=== PATIENT | female | born 1995 | race Caucasian/White ===

== ENCOUNTER 2022-12-28 16:31 | Emergency (ER) | payer OTHER, SELFPAY ==
[2022-12-28 17:28] LABS: Absolute Lymphocytes (CBC) 2.3 K/uL (0.7-4.9); Hematocrit 37.4 % (36.0-45.0); Lymphocytes % 23.2 % (15.3-44.8); MCV 88.5 fL (80-100); MPV 9.2 fL (7.6-11.3); RBC Red Blood Cell Count 4.23 M/uL (3.86-4.86)
[2022-12-28 17:45] LABS: Calcium Oxalate Crystals- Ur Few /HPF (None Seen); Urine Bacteria None Seen /HPF (<20); Urine Mucus 1+ /HPF (None Seen); Urine RBC >50 /HPF (None Seen)
[2022-12-28 18:02] LABS: Potassium 3.1 mmol/L (3.5-5.1)
--- NOTE | 2022-12-28 19:18 | RAD REPORT ---
EXAM DESCRIPTION: US - Matter hSayyal Tm 1 - 12/28/2022 6:23 pm CLINICAL HISTORY: VAGINAL BLEEDING Early . COMPARISON: No comparisons FINDINGS: A single live intrauterine gestation is identified in cephalic position. Amniotic fluid gr ossly normal. Heart rate is normal 166 beats per minute. Estimated gestational age 14 weeks 4 days. P lacenta appears forming anteriorly. Neither ovary well visualized. No gross adnexal abnormality bilaterally. IMPRESSION: Single live early intrauterine gestation. No acute finding.
[2022-12-28] MEDS ORDERED: NA CHLORIDE 0.9% 100 ML ONE (19:38)
[2022-12-28] MEDS ORDERED: CEFAZOLIN SODIUM 1 GM/VIAL ONE (19:38)
[2022-12-28 19:56] VITALS: BP 147/75; TEMP 97.5; O2SAT 100
[2023-01-01 09:56] LABS: Urine Blood 3+ (Negative); Urine Glucose Trace (Negative); Urine Protein 2+ (Negative); Urine Specific Gravity >=1.030 (1.005-1.030)
--- NOTE | 2023-01-12 15:19 | EDPHYS ---
Physician Documentation [facility] Name: Ramonita Lim Age: 27 yrs Sex: Female : 1995 Arrival Date: 12/28/2022 Time: 16:34 Bed 11 Private MD: ED Physician Nehemias Crowley HPI: 12/28 16:49 This 27 yrs old Female presents to ER via Ambulatory with complaints of 15wks pm1 ,vaginal bleeding, Abdominal Cramping. 16:49 The patient presents with vaginal bleeding that is light, with no clots. Onset: The pm1 symptoms/episode began/occurred today. Modifying factors: The symptoms are alleviated by nothing, the symptoms are aggravated by nothing. Associated signs and symptoms: Pertinent positives: cramping, Pertinent negatives: dysuria, fever, nausea, vomiting. Severity of symptoms: in the emergency department the symptoms are actually worse. The patient is sexually active. The patient has experienced similar episodes in the past, Patient reports history of first trimester bleeding. The patient has not recently seen a physician. . 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 - Social history:: Smoking status: Patient denies any tobacco usage or history of. ROS: 16:49 Positive for vaginal bleeding, Negative for urinary symptoms. pm1 16:49 Constitutional: Negative for fever, chills, and weight loss, Cardiovascular: Negative for chest pain, palpitations, and edema, Respiratory: Negative for shortness of breath, cough, wheezing, and pleuritic chest pain. 16:49 Back: Negative for injury and pain, MS/Extremity: Negative for injury and deformity, Skin: Negative for injury, rash, and discoloration, Neuro: Negative for headache, weakness, numbness, tingling, and seizure. 16:49 Abdomen/GI: Positive for abdominal cramps, of the suprapubic area. 16:49 All other systems are negative. Exam: 16:49 Constitutional: This is a well developed, well nourished patient who is awake, alert, pm1 and in no acute distress. Head/Face: Normocephalic, atraumatic. 16:49 Back: No spinal tenderness. No costovertebral tenderness. Full range of motion. Skin: Warm, dry with normal turgor. Normal color with no rashes, no lesions, and no evidence of cellulitis. MS/ Extremity: Pulses equal, no cyanosis. Neurovascular intact. Full, normal range of motion. 16:49 Eyes: Exam is negative for acute changes. 16:49 ENT: Exam is negative for acute changes, Mouth: no acute changes, Lips: normal, moist, Oral mucosa: normal, pink and intact, moist. 16:49 Cardiovascular: Exam negative for acute changes. 16:49 Respiratory: Exam negative for acute changes, respiratory distress, shortness of breath. 16:49 Abdomen/GI: Inspection: abdomen appears normal, Palpation: abdomen is soft and non-tender, in all quadrants. 16:49 Neuro: Exam negative for acute changes, Orientation: is normal, Motor: is normal, moves all fours. Vital Signs: 16:39 BP 147 / 75; Pulse 79; Resp 16; Temp 97.5; Pulse Ox 100% on R/A; Weight 68.04 kg; hb Height 5 ft. 4 in. ; Pain 6/10; 16:39 Body Mass Index 25.75 (68.04 kg, 162.56 cm) hb 16:39 Pain Scale: Adult hb MDM: 16:43 Patient medically screened. pm1 17:17 Data reviewed: vital signs. pm1 17:17 Differential diagnosis: ectopic , nonspecific abdominal pain, placenta previa. pm1 19:05 Counseling: I had a detailed discussion with the patient and/or guardian regarding: the pm1 historical points, exam findings, and any diagnostic results supporting the discharge/admit diagnosis, lab results, radiology results, the need for outpatient follow up, an OB/Gyne specialist, pending official U/S read. 19:21 Counseling: I had a detailed discussion with the patient and/or guardian regarding: pm1 radiology results, the need for outpatient follow up, an OB/Gyne specialist, to return to the emergency department if symptoms worsen or persist or if there are any questions or concerns that arise at home. 12/28 16:44 Order name: Abo/rh Typing pm1 12/28 16:44 Order name: Basic Metabolic Panel; Complete Time: 18:03 pm1 12/28 16:44 Order name: CBC with Diff; Complete Time: 17:39 pm1 12/28 16:44 Order name: Quantitative Hcg; Complete Time: 18:03 pm1 12/28 16:44 Order name: Urine Microscopic Only; Complete Time: 17:47 pm1 12/28 18:24 Order name: Matter Eval Tm 1; Complete Time: 19:19 EDMS 12/28 16:44 Order name: IV Saline Lock; Complete Time: 17:20 pm1 12/28 16:44 Order name: Labs collected and sent; Complete Time: 17:20 pm1 12/28 16:44 Order name: NPO; Complete Time: 17:05 pm1 12/28 16:44 Order name: Urine Dipstick-Ancillary (obtain specimen); Complete Time: 17:20 pm1 12/28 16:44 Order name: Urine Test (obtain specimen); Complete Time: 17:20 pm1 Administered Medications: No medications were administered Disposition: 12/29 07:02 Co-signature as Attending Physician, Nehemias Crowley MD I reviewed the patient's care rn provided by the Advanced Practice Provider and agree with the diagnosis and treatment plan. Disposition Summary: 12/28/22 19:22 Discharge Ordered Location: Home pm1 Problem: new pm1 Symptoms: have improved pm1 Condition: Stable pm1 Diagnosis - Threatened pm1 Followup: pm1 - With: Emergency Department - When: - Reason: Worsening of condition Followup: pm1 - With: Private Physician - When: 2 - 3 days - Reason: Recheck today's complaints, Continuance of care, Re-evaluation by your physician Discharge Instructions: - Discharge Summary Sheet pm1 - Threatened Miscarriage pm1 - Vaginal Bleeding During , Second Trimester pm1 - Activity Restriction During pm1 - Vaginal Bleeding During , Second Trimester, [id number] pm1 Forms: - Medication Reconciliation Form pm1 - Thank You Letter pm1 - Antibiotic Education pm1 - Prescription Opioid Use pm1 Signatures: Dispatcher [employer] EDNehemias Hare MD MD rn Marinas, Patrick, SEAT JOINER CHAINSTITCH SEAT JOINER CHAINSTITCH pm1 Shireen Bui RN RN Corrections: (The following items were deleted from the chart) 12/28 18:24 16:58 Transvaginal Ob+US.RAD.BRZ ordered. EDMS EDMS
--- NOTE | 2023-01-12 15:19 | ER ---
Nurse's Notes [facility] Name: Ramonita Lim Age: 27 yrs Sex: Female : 1995 Arrival Date: 12/28/2022 Time: 16:34 Bed 11 Private MD: Diagnosis: Threatened Presentation: 12/28 16:39 Chief complaint: Lower abdominal cramping x 3 days, scant vaginal bleeding this hb afternoon. Pt is 15 weeks 2 days , LIAN 06/19, . Coronavirus screen: At this time, the client does not indicate any symptoms associated with coronavirus-19. Ebola Screen: No symptoms or risks identified at this time. Initial Sepsis Screen: Does the patient meet any 2 criteria? No. Patient's initial sepsis screen is negative. Does the patient have a suspected source of infection? No. Patient's initial sepsis screen is negative. Risk Assessment: Do you want to hurt yourself or someone else? Patient reports no desire to harm self or others. Onset of symptoms was December 26, 2022. 16:39 Method Of Arrival: Ambulatory hb 16:39 Acuity: CLAY 3 hb COUNTY MANAGER: 16:49 1, Full Term 0, Living 0 pm1 Historical: - Allergies: 16:41 Latex, Natural Rubber; hb - Home Meds: 16:41 None [Active]; hb - PMHx: 16:41 None; hb - PSHx: 16:41 None; hb - Immunization history:: Adult Immunizations up to date. - Social history:: Smoking status: Patient denies any tobacco usage or history of. Vital Signs: 16:39 BP 147 / 75; Pulse 79; Resp 16; Temp 97.5; Pulse Ox 100% on R/A; Weight 68.04 kg; hb Height 5 ft. 4 in. ; Pain 6/10; 16:39 Body Mass Index 25.75 (68.04 kg, 162.56 cm) hb 16:39 Pain Scale: Adult hb ED Course: 16:34 Patient arrived in ED. mr 16:41 Triage completed. hb 16:41 Arm band placed on. hb 16:43 Atul Dickson NP is PHCP. pm1 16:43 Nehemias Crowley MD is Attending Physician. pm1 17:05 Messina, Beatriz, RN is Primary Nurse. eh3 17:20 Inserted saline lock: 20 gauge in left antecubital area, using aseptic technique. Blood eh3 collected. 18:24 Matter Eval Tm 1 In Process Unspecified. EDMS Administered Medications: No medications were administered Outcome: 19:22 Discharge ordered by . pm1 19:32 Patient left the ED. eh3 Signatures: Dispatcher [employer] EDMS ArnavCindy RandolphAtul, TOPOLOGY PROFESSOR TOPOLOGY PROFESSOR pm1 Shireen Bui, MAKAYLA RN Beatriz Messina RN RN eh3
== END 2022-12-28 19:32 | disposition home or self-care (01) ==
LOC: ER 16:31
DX: O20.0 Threatened abortion (principal); Z91.040 Latex allergy status; Z91.048 Other nonmedicinal substance allergy status
CPT/HCPCS: 85025; 80048; 36415; 86900; 86850; 85461; 86901 ×2; 84702; 76801; 99283; J0690; 81003; 81015

== ENCOUNTER 2022-12-29 16:55 | Emergency (ER) | payer OTHER, SELFPAY ==
[2022-12-29] MEDS ORDERED: PROMETHAZINE INJ 25 MG/ML AMP ONE (18:43)
[2022-12-29] MEDS ORDERED: FENTANYL CITR 100 MCG/2 ML ONE ×2 (18:44→21:11)
[2022-12-29] MEDS ORDERED: NA CHLORIDE 0.9% 250 ML ONE (18:44)
[2022-12-29] MEDS ORDERED: NA CHLORIDE 0.9% 1,000 ML ONE (18:44)
--- NOTE | 2022-12-29 18:59 | RAD REPORT ---
EXAM DESCRIPTION: US - OB Limited - 12/29/2022 6:51 pm CLINICAL HISTORY: ABD CRAMPING, COMPARISON: Matter Eval Tm 1 dated 12/28/2022 TECHNIQUE: Sonographic grayscale and color flow images of a first-trimester were obtained through approach. FINDINGS: A single live intrauterine is identified. Grayscale and M-mode for evaluation of the cardiac activity was performed, with a heart r ate measuring 156 beats per minute [place]-rump length measurement and the pain was performed on obstetrical ultrasound of the previous da y. No abnormal collections of findings to suggest subchorionic hemorrhage. Maternal ovaries were not visualized. No free fluid. IMPRESSION: 1. Single live intrauterine . 2. heart rate: 156 beats per minute. 3. dating was performed on ultrasound of the previous day.
[2022-12-29 19:10] LABS: Absolute Lymphocytes (CBC) 1.6 K/uL (0.7-4.9); Lymphocytes % 9.4 % (15.3-44.8); MPV 9.3 fL (7.6-11.3); RBC Red Blood Cell Count 4.32 M/uL (3.86-4.86)
[2022-12-29 19:28] LABS: Potassium 3.4 mmol/L (3.5-5.1)
[2022-12-29 19:58] LABS: Urine Bacteria <20 /HPF (<20); Urine Crystals Unidentified Few /HPF (None Seen); Urine Mucus 2+ /HPF (None Seen); Urine RBC 21-50 /HPF (None Seen)
--- NOTE | 2022-12-29 20:08 | RAD REPORT ---
EXAM DESCRIPTION: US - Renal Ultrasound-Complete - 12/29/2022 6:51 pm CLINICAL HISTORY: LOWER BACK PAIN COMPARISON: No comparisons TECHNIQUE: Sonographic grayscale and color flow images of both kidneys were obtained. FINDINGS: Evaluation is technically limited due to suboptimal patient positioning due to pain. Both kidneys are normal in size, shape and echotexture. The right kidney measures 8.6 centimeter in length. No hydronephrosis, focal mass or perinephric flui d. The left kidney measures 10 centimeter in length. No hydronephrosis, focal mass or perinephric fluid. IMPRESSION: Unremarkable renal sonogram.
[2022-12-29] MEDS ORDERED: ACETAMINOPHEN 325 MG TABLET ONE (21:02)
[2022-12-29] MEDS ORDERED: MORPHINE 2 MG/ML SYR ONE (21:02)
[2022-12-29] MEDS ORDERED: POTASSIUM 25 MEQ EFFERV TAB ONE (21:02)
[2022-12-29] MEDS ORDERED: METOCLOPRAMIDE 10 MG/2mL INJ ONE (21:10)
[2022-12-30 01:33] VITALS: BP 112/58; TEMP 97.5; O2SAT 100
--- NOTE | 2023-01-12 16:05 | EDPHYS ---
Physician Documentation [facility] Name: Ramonita Lim Age: 27 yrs Sex: Female : 1995 Arrival Date: 12/29/2022 Time: 16:59 Bed 10 Private MD: ED Physician Nehemias Crowley HPI: 12/29 18:35 This 27 yrs old Female presents to ER via Ambulatory with complaints of 15 wks snw , Vaginal Bleeding, Back Pain. 18:28 The patient presents to the emergency department with. The estimated gestational age is snw 15 weeks. 18:35 course: Ultrasound: the patient had an ultrasound, on December 28, 2022. snw Previous pregnancies: the patient has never been . Associated signs and symptoms: Pertinent positives: hx of kidney stones. The patient has not experienced similar symptoms in the past. The patient has been recently seen by a physician: The patient has been recently seen at the [facility], yesterday. 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 - Social history:: Smoking status: Patient denies any tobacco usage or history of. ROS: 18:38 Constitutional: Negative for fever, chills, and weight loss, Eyes: Negative for injury, snw pain, redness, and discharge, ENT: Negative for injury, pain, and discharge, Neck: Negative for injury, pain, and swelling. 18:38 Cardiovascular: Negative for chest pain, palpitations, and edema, Respiratory: Negative for shortness of breath, cough, wheezing, and pleuritic chest pain, Abdomen/GI: Negative for abdominal pain, nausea, vomiting, diarrhea, and constipation. 18:38 MS/Extremity: Negative for injury and deformity, Skin: Negative for injury, rash, and discoloration, Neuro: Negative for headache, weakness, numbness, tingling, and seizure, Psych: Negative for depression, anxiety, suicide ideation, homicidal ideation, and hallucinations. 18:38 Back: Positive for flank pain, on the left. 18:38 : Positive for "peeing blood". Exam: 18:39 Head/Face: Normocephalic, atraumatic. Eyes: Pupils equal round and reactive to light, snw extra-ocular motions intact. Lids and lashes normal. Conjunctiva and sclera are non-icteric and not injected. Cornea within normal limits. Periorbital areas with no swelling, redness, or edema. ENT: Nares patent. No nasal discharge, no septal abnormalities noted. Tympanic membranes are normal and external auditory canals are clear. Oropharynx with no redness, swelling, or masses, exudates, or evidence of obstruction, uvula midline. Mucous membranes moist. Neck: Trachea midline, no thyromegaly or masses palpated, and no cervical lymphadenopathy. Supple, full range of motion without nuchal rigidity, or vertebral point tenderness. No Meningismus. Chest/axilla: Normal chest wall appearance and motion. Nontender with no deformity. No lesions are appreciated. Cardiovascular: Regular rate and rhythm with a normal S1 and S2. No gallops, murmurs, or rubs. Normal PMI, no JVD. No pulse deficits. 18:39 Abdomen/GI: Soft, non-tender, with normal bowel sounds. No distension or tympany. No guarding or rebound. No evidence of tenderness throughout. 18:39 Neuro: Awake and alert, GCS 15, oriented to person, place, time, and situation. Cranial nerves II-XII grossly intact. Motor strength 5/5 in all extremities. Sensory grossly intact. Cerebellar exam normal. Normal gait. 18:39 Constitutional: The patient appears alert, anxious, frail, in obvious pain, restless, uncomfortable. 18:39 Respiratory: the patient does not display signs of respiratory distress, Respirations: normal, Breath sounds: are clear throughout. 18:39 Back: pain, that is moderate, CVA tenderness, that is mild. 18:39 Skin: Appearance: Color: pale, Turgor: is good. 18:39 Psych: Affect is pt in pain, fearful. Vital Signs: 17:44 BP 112 / 58; Pulse 94; Resp 18; Temp 97.5; Pulse Ox 100% on R/A; Weight 65.77 kg; ph Height 5 ft. 4 in. ; 17:44 Body Mass Index 24.89 (65.77 kg, 162.56 cm) ph MDM: 18:04 Data reviewed: vital signs, nurses notes, ED record from yesterday.. ED course: snw evaluated visit from yesterday. Noted pt is A negative. Rhogam order placed.. 18:27 Patient medically screened. cp 18:37 Differential diagnosis: kidney stones, placental developmental problem. snw 18:41 Transition of care: After a detail discussion of the patient's case, care is snw transferred to Aleks EASTON. 12/29 18:34 Order name: Urine Culture [facility] 12/29 18:34 Order name: Urine Microscopic Only; Complete Time: 20:44 [facility] 12/29 20:45 Interpretation: Normal except: UWBC 20-50; URBC 21-50; SQEPI >50. 12/29 18:34 Order name: CBC with Diff; Complete Time: 20:44 [facility] 12/29 20:45 Interpretation: Normal except: WBC 16.60; VÍCTOR% 86.7; LYM% 9.4; NEUT A 14.3. 12/29 18:34 Order name: Chem 7; Complete Time: 20:44 [facility] 12/29 20:45 Interpretation: Normal except: K 3.4; CL 108; CO2 18; ANION GAP 15.4; GLUC 133. 12/29 19:29 Order name: Rh Typing [facility] 12/29 19:30 Order name: Rhogam [facility] 12/29 17:06 Order name: US OB Limited; Complete Time: 20:44 [facility] 12/29 18:34 Order name: US Rp Exam Complete; Complete Time: 20:44 [facility] 12/29 18:34 Order name: Urine Dipstick-Ancillary (obtain specimen); Complete Time: 19:32 [facility] 12/29 20:47 Order name: PO challenge; Complete Time: 21:28 cp Administered Medications: 19:07 Drug: fentaNYL (PF) IVP 25 mcg Route: IVP; Site: right forearm; mb9 19:24 Follow up: Response: No adverse reaction mb9 19:07 Drug: NS 0.9% IV 1000 ml Route: IV; Rate: 1 bolus; Site: right forearm; mb9 21:30 Follow up: Response: No adverse reaction; IV Status: Completed infusion; IV Intake: kr3 1000ml 19:07 Drug: Promethazine IVP 25 mg Route: IVP; Site: Other; mb9 19:22 Follow up: Response: No adverse reaction mb9 19:07 Drug: NS 0.9% IV 250 ml Route: IV; Rate: bolus; Site: right forearm; mb9 21:30 Follow up: Response: No adverse reaction; IV Status: Completed infusion; IV Intake: kr3 1000ml 19:54 Drug: Rho D Immune Globulin IM 300 mcg Route: IM; Site: left deltoid; mb9 21:30 Follow up: Response: No adverse reaction kr3 21:02 Drug: Acetaminophen PO 650 mg Route: PO; kr3 21:29 Follow up: Response: No adverse reaction kr3 21:03 Not Given (Physician Discretion): morphine IVP or IV 2 mg IVP once over 4 mins cp 21:18 Drug: Potassium PO Effervescent Tablet 50 mEq Route: PO; kr3 21:18 Drug: metoCLOPramide IVP 10 mg Route: IVP; Site: right forearm; kr3 21:29 Follow up: Response: No adverse reaction kr3 21:19 Drug: fentaNYL (PF) IVP 25 mcg Route: IVP; Site: right forearm; kr3 21:29 Follow up: Response: No adverse reaction kr3 Disposition Summary: 12/29/22 21:07 Discharge Ordered Location: Home cp Problem: new cp Symptoms: have improved cp Condition: Stable cp Diagnosis - Threatened cp - Low back pain cp Followup: cp - With: Private Physician - When: 2 - 3 days - Reason: Recheck today's complaints Discharge Instructions: - Activity Restriction During cp - Vaginal Bleeding During , Second Trimester cp - Threatened Miscarriage cp - Care cp - Acute Back Pain, Adult cp - Discharge Summary Sheet cp Forms: - Prescription Opioid Use cp - Antibiotic Education cp - Thank You Letter cp - Medication Reconciliation Form cp Prescriptions: - promethazine 25 mg Oral Tablet - take 1 tablet by ORAL route every 6 hours As needed; 20 tablet; Refills: 0, cp Product Selection Permitted - Macrobid 100 mg Oral Capsule - take 1 capsule by ORAL route every 12 hours for 7 days; 14 capsule; Refills: 0, cp Product Selection Permitted Addendum: 01/01/2023 08:42 Co-signature as Attending Physician, Nehemias Crowley MD I reviewed the patient's care r n provided by the Advanced Practice Provider and agree with the diagnosis and treatment plan. Signatures: Dispatcher [employer] Mariajose Laughlin, HOT PACKER-C HOT PACKER-Csnw Nehemias Crowley MD MD rn Hall, Patricia, RN RN Aleks Chandler PA PA cp Reid, Kelley, RN RN kr3 Cindy Burton, RN RN mb9
--- NOTE | 2023-01-12 16:05 | ER ---
Nurse's Notes [facility] Name: Ramonita Lim Age: 27 yrs Sex: Female : 1995 Arrival Date: 12/29/2022 Time: 16:59 Bed 10 Private MD: Diagnosis: Threatened ;Low back pain Presentation: 12/29 17:44 Chief complaint: Patient states: L side pain that started today, also reports N/V, ph actively vomiting in triage, hx of kidney stones, also reports blood in urine, pt is 15 weeks . Coronavirus screen: Vaccine status: Patient reports being unvaccinated. Ebola Screen: No symptoms or risks identified at this time. Initial Sepsis Screen: Does the patient meet any 2 criteria? No. Patient's initial sepsis screen is negative. Does the patient have a suspected source of infection? No. Patient's initial sepsis screen is negative. Risk Assessment: Do you want to hurt yourself or someone else? Patient reports no desire to harm self or others. Onset of symptoms was December 29, 2022. 17:44 Method Of Arrival: Ambulatory ph 17:44 Acuity: CLAY 3 ph Triage Assessment: 17:47 General: Appears in no apparent distress. uncomfortable, Behavior is calm, cooperative. ph Pain: Complains of pain in posterior aspect of left lateral abdomen and anterior aspect of left lateral abdomen. 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 - Social history:: Smoking status: Patient denies any tobacco usage or history of. Screenin:29 [facility] ED Fall Risk Assessment (Adult) History of falling in the last 3 months, mb9 including since admission No falls in past 3 months (0 pts) Confusion or Disorientation No (0 pts) Intoxicated or Sedated No (0 pts) Impaired Gait No (0 pts) Mobility Assist Device Used No (0 pt) Altered Elimination No (0 pt) Score/Fall Risk Level 0 - 2 = Low Risk Oriented to surroundings, Maintained a safe environment, Educated pt \T\ family on fall prevention, incl call for assistance when getting out of bed. Abuse screen: Denies threats or abuse. Nutritional screening: No deficits noted. Tuberculosis screening: No symptoms or risk factors identified. Assessment: 18:24 Reassessment: pt brought back to ER room. ph 18:45 General: Appears uncomfortable, ill, Behavior is cooperative. Pain: Complains of pain mb9 in abdomen and anterior aspect of left lateral abdomen and posterior aspect of left lateral abdomen Pain began suddenly, Aggravated by increased activity, repositioning. Neuro: Level of Consciousness is awake, alert, obeys commands, Oriented to person, place, time, situation, Appropriate for age. Cardiovascular: Rhythm is regular. Respiratory: Airway is patent Respiratory effort is even, unlabored, Respiratory pattern is regular, symmetrical. GI: Abdomen is flat, non-distended, Pt is actively vomiting Bowel sounds present X 4 quads. Abd is soft and non tender X 4 quads. : Reports vaginal bleeding that is light flow, spotty. EENT: No signs and/or symptoms were reported regarding the EENT system. Derm: Skin is pink, warm \T\ dry. Musculoskeletal: Range of motion: intact in all extremities. 20:44 Reassessment: Patient is alert, oriented x 3, equal unlabored respirations, skin bb warm/dry/pink. pt states she is still in a lot of pain Aleks EASTON notified new orders received. Vital Signs: 17:44 BP 112 / 58; Pulse 94; Resp 18; Temp 97.5; Pulse Ox 100% on R/A; Weight 65.77 kg; ph Height 5 ft. 4 in. ; 17:44 Body Mass Index 24.89 (65.77 kg, 162.56 cm) ph ED Course: 16:59 Patient arrived in ED. mr 17:00 Mariajose Wu FNP-C is PHCP. snw 17:00 Nehemias Crowley MD is Attending Physician. snw 17:46 Triage completed. ph 17:47 Arm band placed on. ph 18:00 Placed in gown. Bed in low position. Call light in reach. Side rails up X 1. Client mb9 placed on continuous cardiac and pulse oximetry monitoring. NIBP monitoring applied. 18:11 PHCP role handed off by Mariajose Wu FNP-C cp 18:11 Aleks Ray PA is PHCP. cp 18:52 US OB Limited In Process Unspecified. EDMS 18:53 US Rp Exam Complete In Process Unspecified. EDMS 19:00 No provider procedures requiring assistance completed. Inserted saline lock: 20 gauge mb9 in right forearm, using aseptic technique. 19:04 Darlin Messina, RN is Primary Nurse. ph 19:07 Chem 7 Sent. mb9 19:07 CBC with Diff Sent. mb9 19:32 Urine Culture Sent. mb9 19:32 Urine Microscopic Only Sent. mb9 21:29 IV discontinued, intact, bleeding controlled, No redness/swelling at site. Pressure kr3 dressing applied. Administered Medications: 19:07 Drug: fentaNYL (PF) IVP 25 mcg Route: IVP; Site: right forearm; mb9 19:24 Follow up: Response: No adverse reaction mb9 19:07 Drug: NS 0.9% IV 1000 ml Route: IV; Rate: 1 bolus; Site: right forearm; mb9 21:30 Follow up: Response: No adverse reaction; IV Status: Completed infusion; IV Intake: kr3 1000ml 19:07 Drug: Promethazine IVP 25 mg Route: IVP; Site: Other; mb9 19:22 Follow up: Response: No adverse reaction mb9 19:07 Drug: NS 0.9% IV 250 ml Route: IV; Rate: bolus; Site: right forearm; mb9 21:30 Follow up: Response: No adverse reaction; IV Status: Completed infusion; IV Intake: kr3 1000ml 19:54 Drug: Rho D Immune Globulin IM 300 mcg Route: IM; Site: left deltoid; mb9 21:30 Follow up: Response: No adverse reaction kr3 21:02 Drug: Acetaminophen PO 650 mg Route: PO; kr3 21:29 Follow up: Response: No adverse reaction kr3 21:03 Not Given (Physician Discretion): morphine IVP or IV 2 mg IVP once over 4 mins cp 21:18 Drug: Potassium PO Effervescent Tablet 50 mEq Route: PO; kr3 21:18 Drug: metoCLOPramide IVP 10 mg Route: IVP; Site: right forearm; kr3 21:29 Follow up: Response: No adverse reaction kr3 21:19 Drug: fentaNYL (PF) IVP 25 mcg Route: IVP; Site: right forearm; kr3 21:29 Follow up: Response: No adverse reaction kr3 Medication: 19:28 VIS not applicable for this client. mb9 Intake: 21:30 IV: 1000ml; Total: 1000ml. kr3 21:30 IV: 1000ml; Total: 2000ml. kr3 Outcome: 21:07 Discharge ordered by . cp 21:28 Discharged to home ambulatory. kr3 21:28 Condition: stable 21:28 Discharge instructions given to patient, family, Instructed on discharge instructions, follow up and referral plans. medication usage, Demonstrated understanding of instructions, follow-up care, medications, Prescriptions given X 2. 21:30 Patient left the ED. kr3 Signatures: Dispatcher [employer] EDMS Mariajose Wu, SUPPORT WORKER-C SUPPORT WORKER-Brianw Cindy José Brenda, RN RN Darlin Roblero RN RN Aleks Chandler PA PA cp Reid, Kelley, RN RN kr3 Cindy Burton RN RN mb9 Corrections: (The following items were deleted from the chart) 19:29 18:45 : No signs and/or symptoms were reported regarding the genitourinary system. [id number]
== END 2022-12-29 21:30 | disposition home or self-care (01) ==
LOC: ER 16:55
DX: O20.0 Threatened abortion (principal); Z91.040 Latex allergy status; Z91.048 Other nonmedicinal substance allergy status
CPT/HCPCS: 87088; 85025; 87086; 80048; 36415; 86901; 81015; 76815; 76770; 96372; 99284; J2790; J2550; J2765; J3010 ×2; J2270; J7050; J7030